=== PATIENT | male | born 1980 | race Caucasian/White ===

== ENCOUNTER 2017-05-05 11:54 | Observation (INO) | payer SELFPAY ==
[~2017-05-05] VITALS: Ht 170.2 cm; Wt 72.5 kg
[2017-05-05 11:55] VITALS: BP 157/85; PULSE 83; RESP 17; TEMP 98.8; O2SAT 96
--- NOTE | 2017-05-05 12:15 | PD ---
Physical Exam Time Seen by Provider: 12:14 Narrative 37yo M c/o "feeling sick and weird" for past few days. 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 IV drug use a few days ago. [place] fever, vomiting. Patient seen in triage. VS reviewed. Patient awaiting bed placement. Data Data Last Documented VS Vital Signs Date Time Temp Pulse Resp B/P Pulse Ox O2 Delivery O2 Flow Rate FiO2 05/05/17 11:55 98.8 83 17 157/85 96 MDM Supervised Visit with PEBBLES: Mikayla Barksdale May 05, 2017 12:15
[2017-05-05 16:25] VITALS: BP 116/73; PULSE 51; RESP 17; RESP 18; TEMP 97.8; O2SAT 98
--- NOTE | 2017-05-05 16:32 | PD ---
HPI Chief Complaint: Medical Clearance Time Seen by Provider: 16:20 Travel History International Travel<30 days: No Contact w/Intl Traveler<30days: No Traveled to known affect area: No History of Present Illness HPI 37 y/o male presents with feeling ill and having headaches over the past week or so. He states he last injected heroin this weekend. He states that he had brain surgery for an abscess up in [facility] a couple months ago. Quality is doesn't feel right. Severity is all over. He denies any fevers or other complaints other than intermittent numbness to his left arm. [facility] Past Medical History Narrative Medical Recent brain abscess Past Surgical History Narrative Surgical Brain surgery Social History Tobacco Use: Yes Substance Use: Yes (IV drug abuse) Allergies-Medications (Allergen,Severity, Reaction): Coded Allergies: Contrast Media (Verified Allergy, Unknown, HIVES, 05/05/17) Reported Meds & Prescriptions Reported Meds & Active Scripts Active Reported Methadone (Methadone HCl) 40 Mg Tab 110 Mg PO DAILY Review of Systems Except as stated in HPI: all other systems reviewed are Neg Physical Exam Narrative GENERAL: Well-nourished, well-developed patient. SKIN: Warm and dry. HEAD: Normocephalic and atraumatic. EYES: No injection or drainage. ENT: No nasal drainage noted. Poor dentition NECK: Supple, trachea midline. CARDIOVASCULAR: Regular rate and rhythm RESPIRATORY: Breath sounds equal bilaterally. No accessory muscle use. GASTROINTESTINAL: Abdomen soft, non-tender, nondistended. EXTREMITIES: No edema. NEUROLOGICAL: Awake and alert. Motor grossly within normal limits. Normal speech. Subjectively notes tingling to left arm Data Data Last Documented VS Vital Signs Date Time Temp Pulse Resp B/P Pulse Ox O2 Delivery O2 Flow Rate FiO2 05/05/17 16:25 97.8 51 17 116/[address] Brain W/O Iv Contrast(Rout) (05/05/17 ) Complete Blood Count With Diff (05/05/17 16:20) Comprehensive Metabolic Panel (05/05/17 16:20) Prothrombin Time / Inr (Pt) (05/05/17 16:20) Act Partial Throm Time (Ptt) (05/05/17 16:20) Lactic Acid Sepsis Protocol (05/05/17 16:20) Magnesium (Mg) (05/05/17 16:20) Phosphorus (Po4) (05/05/17 16:20) Urinalysis - C+S If Indicated (05/05/17 16:20) Blood Culture (05/05/17 16:20) Chest, Single Ap (05/05/17 16:20) Ecg Monitoring (05/05/17 16:20) Iv Access Insert/Monitor (05/05/17 16:20) Oximetry (05/05/17 16:20) Ckmb (Isoenzyme) Profile (05/05/17 16:32) Troponin I (05/05/17 16:32) Urine Culture (05/05/17 17:00) Admit Order (Ed Use Only) (05/05/17 17:57) Diet Regular Basic (05/05/17 Dinner) Vital Signs (Adult) NURA.Q4H (05/05/17 17:58) Neuro Checks . ORDERED (05/05/17 17:58) Ondansetron Inj (Zofran Inj) (05/05/17 18:00) Sodium Chlor 0.9% 1000 Ml Inj (Ns 1000 M (05/05/17 18:00) Labs Laboratory Tests Test 05/05/17 05/05/17 16:40 17:00 White Blood Count 5.8 TH/MM3 Red Blood Count 4.71 MIL/MM3 Hemoglobin 13.4 GM/DL Hematocrit 41.2 % Mean Corpuscular Volume 87.4 FL Mean Corpuscular Hemoglobin 28.3 PG Mean Corpuscular Hemoglobin 32.4 % Concent Red Cell Distribution Width 13.6 % Platelet Count 194 TH/MM3 Mean Platelet Volume 8.6 FL Neutrophils (%) (Auto) 58.3 % Lymphocytes (%) (Auto) 29.3 % Monocytes (%) (Auto) 7.5 % Eosinophils (%) (Auto) 4.4 % Basophils (%) (Auto) 0.5 % Neutrophils # (Auto) 3.4 TH/MM3 Lymphocytes # (Auto) 1.7 TH/MM3 Monocytes # (Auto) 0.4 TH/MM3 Eosinophils # (Auto) 0.3 TH/MM3 Basophils # (Auto) 0.0 TH/MM3 CBC Comment DIFF FINAL Differential Comment Prothrombin Time 11.3 SEC Prothromb Time International 1.0 RATIO Ratio Activated Partial 26.8 SEC Thromboplast Time Sodium Level 139 MEQ/L Potassium Level 4.4 MEQ/L Chloride Level 102 MEQ/L Carbon Dioxide Level 31.5 MEQ/L Anion Gap 6 MEQ/L Blood Urea Nitrogen 15 MG/DL Creatinine 1.09 MG/DL Estimat Glomerular Filtration 76 ML/MIN Rate Random Glucose 97 MG/DL Lactic Acid Level 1.5 mmol/L Calcium Level 8.8 MG/DL Phosphorus Level 3.6 MG/DL Magnesium Level 2.3 MG/DL Total Bilirubin 0.5 MG/DL Aspartate Amino Transf 13 U/L (AST/SGOT) Alanine Aminotransferase 14 U/L (ALT/SGPT) Alkaline Phosphatase 75 U/L Total Creatine Kinase 70 U/L Troponin I LESS THAN 0.02 NG/ML Total Protein 7.8 GM/DL Albumin 4.0 GM/DL Urine Color YELLOW Urine Turbidity CLEAR Urine pH 6.0 Urine Specific [place] 1.026 Urine Protein 30 mg/dL Urine Glucose (UA) NEG mg/dL Urine Ketones NEG mg/dL Urine Occult Blood NEG Urine Nitrite NEG Urine Bilirubin NEG Urine Urobilinogen LESS THAN 2.0 MG/DL Urine Leukocyte Esterase NEG Urine RBC 4 /hpf Urine WBC 1 /hpf Urine Bacteria RARE /hpf Urine Mucus FEW /lpf Microscopic Urinalysis Comment CATH-CULTURE IND MDM Medical Decision Making Medical Screen Exam Complete: Yes Emergency Medical Condition: Yes Medical Record Reviewed: Yes (past history confirmed) Interpretation(s) CBC & BMP Diagram 05/05/17 16:40 Last 24 hours Impressions Chest X-Ray 05/05/17 1620 Signed Impressions: Service Date/Time: Friday, May 05, 2017 16:25 - CONCLUSION: No acute disease. Chuy Gupta MD FACR Head CT 05/05/17 0000 Signed Impressions: Service Date/Time: Friday, May 05, 2017 16:36 - CONCLUSION: Negative for an acute process. Chuy Gupta MD FACR Differential Diagnosis Abscess, mass, endocarditis, pneumonia Narrative Course Will check lab, chest x-ray, CT brain and admit ED workup without emergent process, will place in observation for further testing with chest pain and IV drug abuse, patient and mother updated and agree to plan Physician Communication Physician Communication Dr. Butts agrees to admission Diagnosis Primary Impression: Chest pain Qualified Code: R07.9 - Chest pain, unspecified type Additional Impression: IVDU (intravenous drug user) Admitting Information Admitting Physician Requests: Observation Hird,Dorina May MD May 05, 2017 16:32
[2017-05-05] MEDS ORDERED: METH40TA PO (16:47)
--- NOTE | 2017-05-05 16:53 | RADRPT ---
EXAM DATE/TIME: 05/05/2017 16:25 [facility] COMPARISON: No previous studies available for comparison. INDICATIONS : Chest pain. MEDICAL HISTORY : None. SURGICAL HISTORY : None. ENCOUNTER: Initial ACUITY: 1 day PAIN SCORE: 10/13 LOCATION: Bilateral chest FINDINGS: A single view of the chest demonstrates the lungs to be symmetrically aerated without evidence of mas s, infiltrate or effusion. The cardiomediastinal contours are unremarkable. Osseous structures are intact. CONCLUSION: No acute disease. Chuy Gupta MD FACR on May 05, 2017 at 16:51 Board Certified Radiologist. This report was verified electronically.
[2017-05-05 17:18] LABS: AUTOMATED NEUTROPHIL # 3.4 TH/MM3 (1.8-7.7); BASOPHIL % 0.5 % (0.0-2.0); EOSINOPHIL # 0.3 TH/MM3 (0-0.4); EOSINOPHIL % 4.4 % (0.0-4.0); HEMATOCRIT 41.2 % (39.0-51.0); HEMO FLAGS DIFF FINAL; LYMPH % 29.3 % (9.0-44.0); LYMPHOCYTE # 1.7 TH/MM3 (1.0-4.8); MEAN CELL VOLUME 87.4 FL (80.0-100.0); MEAN CORPUSCULAR HEMOGLOBIN 28.3 PG (27.0-34.0); MEAN CORPUSCULAR HGB CONC 32.4 % (32.0-36.0); MONO % 7.5 % (0.0-8.0); NEUT % 58.3 % (16.0-70.0); PLATELET COUNT 194 TH/MM3 (150-450); RED BLOOD COUNT 4.71 MIL/MM3 (4.50-5.90); RED CELL DISTRIBUTION WIDTH 13.6 % (11.6-17.2); WHITE BLOOD COUNT 5.8 TH/MM3 (4.0-11.0)
--- NOTE | 2017-05-05 17:18 | RADRPT ---
EXAM DATE/TIME: 05/05/2017 16:36 [facility] COMPARISON: No previous studies available for comparison. INDICATIONS : Numbness in arms,sick feeling,history of abscess frontal lobe. RADIATION DOSE: 56.38 CTDIvol (mGy) MEDICAL HISTORY : Frontal lobe abscess SURGICAL HISTORY : brain surgery abscess ENCOUNTER: Initial ACUITY: 1 day PAIN SCALE: 3/10 LOCATION: cranial TECHNIQUE: Multiple contiguous axial images were obtained of the head. Using automated exposure control and adj ustment of the mA and/or kV according to patient size, radiation dose was kept as low as reasonably a chievable to obtain optimal diagnostic quality images. DICOM format image data is available electro nically for review and comparison. FINDINGS: CEREBRUM: The ventricles are normal for age. No evidence of midline shift, mass lesion, hemorrhage or acute in farction. No extra-axial fluid collections are seen. 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 POSTERIOR FOSSA: The cerebellum and brainstem are intact. The 4th ventricle is midline. The cerebellopontine angle i s unremarkable. EXTRACRANIAL: The visualized portion of the orbits is intact. SKULL: Previous surgery is present on the right. CONCLUSION: Negative for an acute process. Chuy Gupta MD FACR on May 05, 2017 at 17:15 Board Certified Radiologist. This report was verified electronically.
[2017-05-05 17:32] LABS: APTT (PATIENT) 26.8 SEC (24.3-30.1); PROTHROMBIN TIME - PATIENT 11.3 SEC (9.8-11.6)
[2017-05-05 17:41] LABS: ALT (GPT) 14 U/L (12-78); ANION GAP 6 MEQ/L (5-15); AST (GOT) 13 U/L (15-37); BICARBONATE 31.5 MEQ/L (21.0-32.0); BLOOD UREA NITROGEN 15 MG/DL (7-18); CHLORIDE 102 MEQ/L (98-107); GLOMERULAR FILTRATION RATE 76 ML/MIN (>89); MAGNESIUM 2.3 MG/DL (1.5-2.5); POTASSIUM 4.4 MEQ/L (3.5-5.1); SODIUM (NA) 139 MEQ/L (136-145)
[2017-05-05 17:43] LABS: ALKALINE PHOSPHATASE 75 U/L (45-117); TOTAL BILIRUBIN ADULT 0.5 MG/DL (0.2-1.0)
[2017-05-05 17:45] LABS: BLOOD, URINE NEG (NEG); GLUCOSE,URINE NEG (NEG); KETONE, URINE NEG (NEG); MUCUS URINE FEW /lpf (OCC); NITRITE,URINE NEG (NEG); URINE COLOR YELLOW (YELLW/STRAW)
[2017-05-05 17:46] LABS: COMMENT (UR) CATH-CULTURE IND; CULTURE IF INDICATED CATH CULTURE IND
[2017-05-05 17:47] LABS: BACTERIA, URINE RARE /hpf
[2017-05-05] MEDS ORDERED: VANCOMYCIN INJ 1,000 MG in SODIUM CHLOR 0.9% 250 ML INJ 250 ML IV STA (17:59)
[2017-05-05] MEDS ORDERED: ONDANSETRON HCL 4 MG/2 ML VIAL IV PUSH PRN (18:00)
[2017-05-05 18:12] LABS: CREATINE KINASE 70 U/L (39-308)
[2017-05-05] MEDS: SODIUM CHLOR 0.9% 1000 ML INJ 1,000 ML IV SCH (18:33)
[2017-05-05 18:39] VITALS: BP 114/70; PULSE 54; RESP 17; TEMP 97.8; O2SAT 98
[2017-05-05 19:49] VITALS: BP 118/72; PULSE 58; RESP 14; O2SAT 99
[2017-05-05] MEDS: PIPERACIL-TAZO 4.5 GM PREMIX 100 ML IV SCH (20:00)
[2017-05-05] MEDS ORDERED: Vancomycin Consult Pharmacy 1 EA OTHER SCH (20:00)
[2017-05-05 21:07] VITALS: BP 107/67; PULSE 50; RESP 19; TEMP 98; O2SAT 96
[2017-05-05 23:49] VITALS: PULSE 47
[2017-05-06 00:28] VITALS: BP 114/64; PULSE 42; RESP 17; TEMP 98.3; O2SAT 95
[2017-05-06] MEDS: PIPERACIL-TAZO 4.5 GM PREMIX 100 ML IV SCH (01:35)
[2017-05-06 03:51] VITALS: BP 110/64; PULSE 43; RESP 16; TEMP 97.8; O2SAT 95
[2017-05-06] MEDS: SODIUM CHLOR 0.9% 1000 ML INJ 1,000 ML IV SCH (04:00)
[2017-05-06] MEDS ORDERED: METH10SO PO (05:12)
[2017-05-06] MEDS ORDERED: VANCOMYCIN 1,000 MG/NS 250 ML IV SCH ×2 (06:00)
[2017-05-06 08:15] VITALS: BP 94/56; PULSE 53; RESP 20; TEMP 98; O2SAT 94
--- NOTE | 2017-05-06 08:49 | HHI.HP ---
HPI Service [facility] Primary Care Physician No Primary Care Physician Admission Diagnosis chest pain, IVDA Diagnoses: Chief Complaint: Weakness Travel History International Travel<30 Days: No Contact w/Intl Traveler <30 Da: No Traveled to Known Affected Are: No History of Present Illness Written by Eduar Rutledge, acting as scribe for Dr. Holm on 05/06/17 at 08:47. This note was transcribed by scribIMANI Mccarthy. I, Dr. Chang Holm personally performed the history, physical exam, and medical decision making; and confirmed the accuracy of the information in the transcribed note. Authenticated by Dr. Chang Holm on 05/06/17 at 23:24. 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 The patient states that for the last week he's felt sick. When asked to describe states that he's felt weak and tired. He has had a headache for the past week. Usually the headache is located in the frontal region, last night it was behind the right eye. The patient does have a history of brain abscess in November 2015 that he states was related to an infected tooth. The patient denies any fevers or chills. The past week he has also had chest discomfort. He describes it as tight, intermittent, not related to exertion. He reports some associated left arm numbness. The patient feels like his symptoms may be related to his broken teeth, for which she has an upcoming appointment with a dentist. Review of Systems Except as stated in HPI: all other systems reviewed are Neg Past Family Social History Past Medical History History of brain abscess History of MRSA Past Surgical History Brain surgery for brain abscess in November 2015 Left hand surgery for infection Right wrist fracture repair Reported Medications Methadone 110 mg daily Allergies: Coded Allergies: Contrast Media (Verified Allergy, Unknown, HIVES, 05/05/17) Active Ordered Medications Current Medications Medications (Trade) Dose Ordered Sig/Radha Route Start Time Stop Time Status Last Admin Ondansetron HCl 4 mg 4 mg Q8H PRN IV PUSH 05/05/17 18:00 Sodium Chloride 1,000 ml @ 100 mls/hr Q10H IV 05/05/17 18:00 05/05/17 18:33 Pharmacy Profile Note 0 ml @ 0 mls/hr UNSCH OTHER 05/05/17 20:00 Piperacillin Sod/ Tazobactam Sod 100 ml @ 200 mls/hr Q6H IV 05/05/17 20:00 05/06/17 01:35 (Vancomycin Inj/ NS 250 ml Inj) 250 ml @ 250 mls/hr Q12H IV 05/06/17 06:00 05/06/17 05:58 Miscellaneous Information SPECIFIC LAB TO BE DINAH... ONCE ONCE .XX 05/07/17 05:45 05/07/17 05:46 (Dolophine) 110 mg DAILY PO 05/06/17 09:00 Family History Reviewed, no family history pertinent current chief complaint Social History Smokes one pack per day Denies any alcohol use IV opiate abuse, last used more than a week ago Physical Exam Vital Signs Vital Signs Date Time Temp Pulse Resp B/P Pulse Ox O2 Delivery O2 Flow Rate FiO2 05/06/17 08:15 98.0 53 20 94/56 94 05/06/17 03:51 97.8 43 16 110/64 95 05/06/17 00:28 98.3 42 17 114/64 95 05/05/17 23:49 47 05/05/17 21:07 98.0 50 19 107/67 96 05/05/17 19:49 58 14 118/72 99 Room Air 05/05/17 18:39 97.8 54 17 114/70 98 Room Air 05/05/17 16:25 97.8 51 17 116/73 98 Room Air 05/05/17 16:25 18 98 Room Air 05/05/17 16:25 51 17 05/05/17 11:55 98.8 83 17 157/85 96 Physical Exam GENERAL: Well-developed well-nourished. In no acute distress. SKIN: Warm and dry. No lesions noted. HEENT: Normocephalic. Pupils equal and round. Mucous membranes pink and moist. Multiple broken teeth and inflamed gums. CARDIOVASCULAR: Regular rate and rhythm. No murmur appreciated. RESPIRATORY: No accessory muscle use. Clear to auscultation. Breath sounds equal bilaterally. GASTROINTESTINAL: Abdomen soft, non-tender, nondistended. Bowel sounds x4. MUSCULOSKELETAL: No obvious deformities. No clubbing or cyanosis. No edema. NEUROLOGICAL: Awake and alert. No focal neurological deficits. Moves upper and lower extremities spontaneously. Normal speech. PSYCHIATRIC: Appropriate mood and affect; insight and judgment normal. Laboratory Laboratory Tests Test 05/05/17 05/05/17 16:40 17:00 White Blood Count 5.8 Red Blood Count 4.71 Hemoglobin 13.4 Hematocrit 41.2 Mean Corpuscular Volume 87.4 Mean Corpuscular Hemoglobin 28.3 Mean Corpuscular Hemoglobin 32.4 Concent Red Cell Distribution Width 13.6 Platelet Count 194 Mean Platelet Volume 8.6 Neutrophils (%) (Auto) 58.3 Lymphocytes (%) (Auto) 29.3 Monocytes (%) (Auto) 7.5 Eosinophils (%) (Auto) 4.4 Basophils (%) (Auto) 0.5 Neutrophils # (Auto) 3.4 Lymphocytes # (Auto) 1.7 Monocytes # (Auto) 0.4 Eosinophils # (Auto) 0.3 Basophils # (Auto) 0.0 CBC Comment DIFF FINAL Differential Comment Prothrombin Time 11.3 Prothromb Time International 1.0 Ratio Activated Partial 26.8 Thromboplast Time Sodium Level 139 Potassium Level 4.4 Chloride Level 102 Carbon Dioxide Level 31.5 Anion Gap 6 Blood Urea Nitrogen 15 Creatinine 1.09 Estimat Glomerular Filtration 76 Rate Random Glucose 97 Lactic Acid Level 1.5 Calcium Level 8.8 Phosphorus Level 3.6 Magnesium Level 2.3 Total Bilirubin 0.5 Aspartate Amino Transf 13 (AST/SGOT) Alanine Aminotransferase 14 (ALT/SGPT) Alkaline Phosphatase 75 Total Creatine Kinase 70 Troponin I LESS THAN 0.02 Total Protein 7.8 Albumin 4.0 Urine Color YELLOW Urine Turbidity CLEAR Urine pH 6.0 Urine Specific [place] 1.026 Urine Protein 30 Urine Glucose (UA) NEG Urine Ketones NEG Urine Occult Blood NEG Urine Nitrite NEG Urine Bilirubin NEG Urine Urobilinogen LESS THAN 2.0 Urine Leukocyte Esterase NEG Urine RBC 4 Urine WBC 1 Urine Bacteria RARE Urine Mucus FEW Microscopic Urinalysis Comment CATH-CULTURE IND Date/Time Procedure Status Source Growth 05/05/17 17:00 Urine Culture Received Urine Catheterized Urine Pending 05/05/17 16:25 Aerobic Blood Culture Received Blood Peripheral Pending 05/05/17 16:25 Anaerobic Blood Culture Received Blood Peripheral Pending Result Diagram: 05/05/17 1640 05/05/17 1640 Imaging Last Impressions Chest X-Ray 05/05/17 1620 Signed Impressions: Service Date/Time: Friday, May 05, 2017 16:25 - CONCLUSION: No acute disease. Chuy Gupta MD FACR Head CT 05/05/17 0000 Signed Impressions: Service Date/Time: Friday, May 05, 2017 16:36 - CONCLUSION: Negative for an acute process. 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 Lactic acid within normal limits. Further workup for headache and chest pain as below. Blood cultures pending, no growth to date. Headache: Head CT negative for acute process. Check brain MRI to rule out abscess. Chest pain: Chest x-ray clear. Initial troponin within normal limits, will repeat. Check EKG. Dental abscess: Could be contributing to symptoms as above. Continue on Augmentin. Outpatient follow-up with dentist. Substance abuse disorder: Counseled on cessation. Continue home methadone dose , monitor with bradycardia. Tobacco abuse: Counseled on cessation. Nicotine patch. Abnormal UA: UA is unremarkable, however was sent for culture. Continue on antibiotics as above. Outpatient follow-up with PCP for final culture results. Disposition: Follow-up results of EKG, troponin, brain MRI, and culture results. If results remain unremarkable, discharge planning for later today. Discharge patient to home Condition on discharge: Improved Regular Diet as tolerated Ad Mira activity Rx written: Augmentin x 7 days. Follow-up with primary care physician within one week. Dentistry within one week. Discussed Condition With Patient with mother at bedside, Eduar Zelaya May 06, 2017 08:49 Edilson Holm DO May 06, 2017 23:25
[2017-05-06 09:00] VITALS: PULSE 46
[2017-05-06] MEDS ORDERED: METHADONE HCL 10 MG TAB PO SCH (09:00)
[2017-05-06] MEDS ORDERED: REMOVE OLD PATCH T-DERMAL SCH (10:00)
[2017-05-06] MEDS ORDERED: NICOTINE 21 MG/24 HR PATCH T-DERMAL SCH (10:00)
[2017-05-06] MEDS ORDERED: AMOXICILLIN/CLAVULANATE K 875 MG TAB PO SCH (10:00)
--- NOTE | 2017-05-06 10:43 | RADRPT ---
EXAM DATE/TIME: 05/06/2017 10:15 [facility] COMPARISON: No previous studies available for comparison. INDICATIONS : Abscess. Headache and numbness in arms. MEDICAL HISTORY : Stroke IVDU. SURGICAL HISTORY : Brain abcess. ENCOUNTER: Initial ACUITY: 1 week PAIN SCORE: 4/10 LOCATION: Head. TECHNIQUE: Multiplanar, multisequence MRI of the brain was performed without contrast. FINDINGS: There is a previous right craniotomy reportedly for abscess. 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 No mass effect or shift. No hydrocephalus. No abnormal extra-axial fluid irene ections. No evidence for recent infarction. Mild hemosiderin deposits in the surgical bed. CONCLUSION: 1. No acute findings. Previous right craniotomy with some residual encephalomalacia in the right fron pilar lobe. Nile William MD on May 06, 2017 at 10:38 Board Certified Radiologist. This report was verified electronically.
[2017-05-06] MEDS ORDERED: AMOX875T2 PO (11:43)
[2017-05-06 12:03] VITALS: BP 98/53; PULSE 45; RESP 18; TEMP 98.1; O2SAT 95
[2017-05-07] MEDS ORDERED: PHARMACY ORDERED LAB ONE (05:45)
== END 2017-05-06 13:23 | disposition home or self-care (01) ==
LOC: NEPC 11:54 → NEDA 17:59 → NEPGCP 20:21
PROVIDERS: ADMIT Hospitalist; ATTEND Hospitalist
DX: R53.1 Weakness (principal); R07.9 Chest pain, unspecified; R51 Headache; K04.7 Periapical abscess without sinus; F17.200 Nicotine dependence, unspecified, uncomplicated; F19.10 Other psychoactive substance abuse, uncomplicated; Z71.6 Tobacco abuse counseling
CPT/HCPCS: 70450; 70551; 71010; 80053; 81001; 82550; 83605; 83735; 84100; 84484; 85025; 85610; 85730; 87040; 87086; 96365; 96366; 96367; 96376; 99285; G0378; J2543; J3370; J7030; J7050

== ENCOUNTER 2017-08-21 09:02 | Emergency (ER) | payer SELFPAY ==
[~2017-08-21] VITALS: Ht 170.2 cm; Wt 77.0 kg
[~2017-08-21 09:02] MED LIST: BACT800T5 PO; CEPH-460 PO; METH10SO PO
[2017-08-21 09:04] VITALS: BP 153/69; PULSE 81; RESP 18; TEMP 98.3; O2SAT 98
[2017-08-21 09:45] VITALS: BP 155/90; PULSE 83; RESP 19; O2SAT 97
[2017-08-21 09:54] LABS: AUTOMATED NEUTROPHIL # 5.3 TH/MM3 (1.8-7.7); BASOPHIL % 0.4 % (0.0-2.0); EOSINOPHIL # 0.3 TH/MM3 (0-0.4); EOSINOPHIL % 3.6 % (0.0-4.0); HEMO FLAGS DIFF FINAL; LYMPH % 24.5 % (9.0-44.0); LYMPHOCYTE # 2.1 TH/MM3 (1.0-4.8); MEAN CELL VOLUME 87.4 FL (80.0-100.0); MEAN CORPUSCULAR HGB CONC 35.5 % (32.0-36.0); MONO % 8.5 % (0.0-8.0); PLATELET COUNT 183 TH/MM3 (150-450); RED BLOOD COUNT 4.68 MIL/MM3 (4.50-5.90); RED CELL DISTRIBUTION WIDTH 14.1 % (11.6-17.2); WHITE BLOOD COUNT 8.5 TH/MM3 (4.0-11.0)
[2017-08-21] MEDS ORDERED: LORazepam 2 MG/ML VIAL IV PUSH ONE (10:00)
[2017-08-21 10:09] LABS: BLOOD, URINE NEG (NEG); GLUCOSE,URINE NEG (NEG); KETONE, URINE NEG (NEG); NITRITE,URINE NEG (NEG); PH, URINE 6.5 (5.0-8.5); URINE COLOR YELLOW (YELLW/STRAW)
[2017-08-21 10:19] LABS: ANION GAP 5 MEQ/L (5-15); AST (GOT) 23 U/L (15-37); BICARBONATE 27.4 MEQ/L (21.0-32.0); BLOOD UREA NITROGEN 15 MG/DL (7-18); CHLORIDE 104 MEQ/L (98-107); GLOMERULAR FILTRATION RATE 72 ML/MIN (>89); SODIUM (NA) 136 MEQ/L (136-145)
[2017-08-21 10:20] LABS: ALT (GPT) 24 U/L (12-78)
[2017-08-21 10:21] LABS: COMMENT (UR) CULT NOT INDICATED; CULTURE IF INDICATED CULT NOT INDICATED; TRANSITIONAL EPI CELLS, URINE 0-5 /hpf; WBC, URINE 0-2 /hpf (0-5)
[2017-08-21 10:22] LABS: ALKALINE PHOSPHATASE 79 U/L (45-117); TOTAL BILIRUBIN ADULT 0.6 MG/DL (0.2-1.0)
--- NOTE | 2017-08-21 10:25 | PD ---
HPI . Facial pain and swelling Chief Complaint: Headache Time Seen by Provider: 09:17 Travel History International Travel<30 days: No Contact w/Intl Traveler<30days: No Traveled to known affect area: No History of Present Illness HPI This patient actually presents with several complaints but the chief complaint is left facial pain and swelling which started this morning. It just started so there has been no progression of his symptoms. He has noted no modifying factors. He does report associated "bad teeth." His second complaint is a "bad headache." He also reports feeling very tired and having a subjective fever. He states that he underwent brain surgery a year ago because of an abscess on his brain. He states that the abscess was felt to be secondary to a dental abscess. Therefore, with the acute facial swelling and a headache, he is concerned about having another abscess in his brain. Lastly, he is complaining with right upper extremity pain. He states that it starts in his back and radiates to his arm. He states that this started when treatment of an infected thumb. That was about a month ago. This patient does admit to a history of IV drug abuse but states that he has been clean for the last 2 months. He is in a methadone treatment program. PFSH Past Medical History Hx Anticoagulant Therapy: No Blood Disorders: No Anxiety: Yes Depression: Yes Heart Rhythm Problems: Yes ("LOW HEART RATE" PER PT ) Cancer: No Cardiovascular Problems: No High Cholesterol: No Chemotherapy: No Chest Pain: Yes Congestive Heart Failure: No Cerebrovascular Accident: Yes Diabetes: No Diminished Hearing: No Endocrine: No Gastrointestinal Disorders: Yes (3-4 DAYS PT HAS BM) Genitourinary: No Immune Disorder: No Implanted Vascular Access Dvce: Yes Musculoskeletal: No Neurologic: Yes (stroke LEFT SIDED DEFICITS) Psychiatric: Yes Reproductive: No Respiratory: No Integumentary: Yes (mrsa ) Radiation Therapy: No Thyroid Disease: No Past Surgical History Body Medical Devices: PLATE AND SCREWS IN HEAD Neurologic Surgery: Yes (BRAIN SURGERY FOR ABSCESS FROM IVD USE) Other Surgery: Yes (BRAIN SURG,LEFT HAND, RIGH WRIST FX) Social History Alcohol Use: No (pt denies) Tobacco Use: Yes (1PPD) Substance Use: Yes (METHADONE DAILY) Allergies-Medications (Allergen,Severity, Reaction): Coded Allergies: Iodinated Contrast- Oral and IV Dye (Unverified Allergy, Severe, Rash, ) diatrizoate meglumine (Unverified Allergy, Unknown, HIVES, 08/21/17) gadobenic acid (Unverified Allergy, Unknown, HIVES, 08/21/17) gadodiamide (Unverified Allergy, Unknown, HIVES, 08/21/17) gadoteridol (Unverified Allergy, Unknown, HIVES, 08/21/17) iodixanol (Unverified Allergy, Unknown, HIVES, 08/21/17) iohexol (Unverified Allergy, Unknown, HIVES, 08/21/17) Reported Meds & Prescriptions Reported Meds & Active Scripts Active Keflex (Cephalexin) 500 Mg Cap 500 Mg PO Q6H 10 Days Bactrim DS (Sulfamethoxazole-Trimethoprim) 800-160 Mg Tab 1 Tab PO BID Reported Methadone Liq (Methadone HCl) 2 Mg/Ml Liqd 110 Mg PO DAILY Review of Systems Except as stated in HPI: all other systems reviewed are Neg General / Constitutional: Positive: Fever, Chills Eyes: No: Blurred Vision, Photophobia HENT: Positive: Headaches, Dental Difficulties, Other (left facial swelling) Musculoskeletal: Positive: Pain Physical Exam Narrative GENERAL: Awake and alert and in no acute distress. SKIN: Warm and dry. Erythema, warmth and swelling of the left cheek. HEAD: Normocephalic/atraumatic. EYES: Pupils are equal. Extraocular movements are intact. ENT: Extremely poor dentition. His teeth have the appearance of someone who has been a user of methamphetamine. NECK: Normal range of motion. Supple. No cervical lymphadenopathy. CARDIOVASCULAR: Regular rate and rhythm. Heart sounds are normal. RESPIRATORY: Nonlabored respirations. MUSCULOSKELETAL: Atraumatic. Tender in the upper thoracic spine. NEUROLOGICAL: Nonfocal. A and O 3. Cranial nerves are intact. Full and equal muscle strength in all 4 extremities. PSYCHIATRIC: Appropriate mood and affect. Data Data Last Documented VS Vital Signs Date Time Temp Pulse Resp B/P (MAP) Pulse Ox O2 Delivery O2 Flow Rate FiO2 08/21/17 13:00 74 17 119/64 (82) 97 Room Air 08/21/17 09:04 98.3 Orders Orders Sepsis Workup Initiated (08/21/17 ) Complete Blood Count With Diff (08/21/17 09:23) Comprehensive Metabolic Panel (08/21/17 09:23) Lactic Acid Sepsis Protocol (08/21/17 09:23) Urinalysis - C+S If Indicated (08/21/17 09:23) Blood Culture (08/21/17 09:23) Blood Glucose (08/21/17 09:23) Ecg Monitoring (08/21/17 09:23) Iv Access Insert/Monitor (08/21/17 09:23) Oximetry (08/21/17 09:23) Oxygen Administration (08/21/17 09:23) Mri Brain W/O Contrast (08/21/17 09:26) Mri T Spine W/O Contrast (08/21/17 09:26) Mri Facial Soft Tiss W/O Cont (08/21/17 ) Lorazepam Inj (Ativan Inj) (08/21/17 10:00) Ampicillin-Sulbactam Inj (Unasyn Inj) (08/21/17 12:45) Ct Facial Bones W/O Iv Cont (08/21/17 12:38) Labs Laboratory Tests Test 08/21/17 09:30 White Blood Count 8.5 TH/MM3 Red Blood Count 4.68 MIL/MM3 Hemoglobin 14.5 GM/DL Hematocrit 41.0 % Mean Corpuscular Volume 87.4 FL Mean Corpuscular Hemoglobin 31.0 PG Mean Corpuscular Hemoglobin Concent 35.5 % Red Cell Distribution Width 14.1 % Platelet Count 183 TH/MM3 Mean Platelet Volume 8.9 FL Neutrophils (%) (Auto) 63.0 % Lymphocytes (%) (Auto) 24.5 % Monocytes (%) (Auto) 8.5 % Eosinophils (%) (Auto) 3.6 % Basophils (%) (Auto) 0.4 % Neutrophils # (Auto) 5.3 TH/MM3 Lymphocytes # (Auto) 2.1 TH/MM3 Monocytes # (Auto) 0.7 TH/MM3 Eosinophils # (Auto) 0.3 TH/MM3 Basophils # (Auto) 0.0 TH/MM3 CBC Comment DIFF FINAL Differential Comment Urine Color YELLOW Urine Turbidity CLEAR Urine pH 6.5 Urine Specific [place] 1.030 Urine Protein NEG mg/dL Urine Glucose (UA) NEG mg/dL Urine Ketones NEG mg/dL Urine Occult Blood NEG Urine Nitrite NEG Urine Bilirubin NEG Urine Urobilinogen LESS THAN 2.0 MG/DL Urine Leukocyte Esterase SMALL Urine WBC 0-2 /hpf Urine Transitional Epithelial Cells 0-5 /hpf Microscopic Urinalysis Comment CULT NOT INDICATED Blood Urea Nitrogen 15 MG/DL Creatinine 1.14 MG/DL Random Glucose 78 MG/DL Total Protein 8.4 GM/DL Albumin 4.2 GM/DL Calcium Level 8.7 MG/DL Alkaline Phosphatase 79 U/L Aspartate Amino Transf (AST/SGOT) 23 U/L Alanine Aminotransferase (ALT/SGPT) 24 U/L Total Bilirubin 0.6 MG/DL Sodium Level 136 MEQ/L Potassium Level 4.0 MEQ/L Chloride Level 104 MEQ/L Carbon Dioxide Level 27.4 MEQ/L Anion Gap 5 MEQ/L Estimat Glomerular Filtration Rate 72 ML/MIN Lactic Acid Level 1.2 mmol/L MDM Medical Decision Making Medical Screen Exam Complete: Yes Emergency Medical Condition: Yes Differential Diagnosis Differential diagnosis of headache includes but is not limited to migraine, muscle contraction headache, brain tumor, brain bleed Differential diagnosis of facial swelling includes but is not limited to dental abscess, cellulitis, angioedema, facial trauma. Differential diagnosis includes but is not limited to muscular low back pain, DDD, spinal stenosis, epidural abscess, sciatica, kidney infection or stone. Narrative Course This patient presents with several problems. His first problem is left facial swelling probably secondary to a dental abscess. The second is a headache and the third is upper back pain radiating to the right arm. He admits to previous IV drug abuse but states that he has been clean for the last 2 months. However , I am concerned about possible epidural abscess in the thoracic back. I'm also concerned about dental abscess. And, he gives a history of a previous brain abscess secondary to a dental abscess. He is allergic to IV contrast. Therefore, I have ordered an MRI of his head, face and thoracic spine. CBC & BMP Diagram 08/21/17 09:30 Total Protein 8.4 H, Albumin 4.2, Calcium Level 8.7, Alkaline Phosphatase 79, Aspartate Amino Transf (AST/SGOT) 23, Alanine Aminotransferase (ALT/SGPT) 24, Total Bilirubin 0.6 LA 1.2 UA neg. With these lab results, I am no longer as worried about infection. MRI face: Ill-defined soft tissue signal abnormality of the left premaxillary region demonstrating hyperintensity on the T2 weighted images. The abnormality measures 4.5 x 1.5 cm in axial dimensions and 5.8 cm in craniocaudal dimensions. It is contiguous with severe mucosal thickening/signal abnormality of the anterior aspect of the left maxillary sinus. The signal abnormality extends through the anterior wall of the left maxillary sinus inferiorly and laterally. The entire contiguous signal abnormality measures 4.6 x 3.3 cm in aggregate. MRI brain: No acute intracranial findings. MRI T spine: Thoracic spine MRI within normal limits. I will get a CT of his face. He will be empirically treated with Unasyn. CT: Corresponding to the findings on the MRI there is circumferential mucosal thickening in the left maxillary sinus without air-fluid level. There is significant induration of the subcutaneous fat of the left premaxillary region and extending medially to the lateral aspect of the nose. There is no focal fluid collection at this time. The retroantral fat pads are normal. The remaining paranasal sinuses are well aerated with minimal ethmoid mucosal thickening. Mastoid air cells are well aerated. No destructive osseous lesions are seen, however there is significant dental disease with periapical lucency seen involving the maxillary teeth consistent with significant dental disease. Multiple dental caries are visualized. Given the results of the CT, he can be treated outpatient with referral to [facility]. Diagnosis Primary Impression: Dental abscess Referrals: Dentist Patient Instructions: Dental Abscess (ED), General Instructions Med/Other Pt SpecificInfo: Prescription(s) given Scripts Amoxicillin-Clavulanate (Augmentin) 875-125 Mg Tab 1 TAB PO BID for Infection, #20 TAB 0 Refills Prov: Kriss Matta MD 08/21/17 Disposition: 01 DISCHARGE HOME Condition: Stable Kriss Matta MD Aug 21, 2017 10:25
--- NOTE | 2017-08-21 11:45 | RADRPT ---
EXAM DATE/TIME: 08/21/2017 09:59 [facility] COMPARISON: No previous studies available for comparison. INDICATIONS : Soft tissue swelling left cheeck MEDICAL HISTORY : IVDA SURGICAL HISTORY : Craniotomy. ENCOUNTER: Initial ACUITY: 1 day PAIN SCORE: 4/10 LOCATION: Left Face TECHNIQUE: Multi-weighted, multi-axial MR images of the facial soft tissue without contrast. FINDINGS: Ill-defined soft tissue signal abnormality of the left premaxillary region demonstrating hyperintensi ty on the T2 weighted images. The abnormality measures 4.5 x 1.5 cm in axial dimensions and 5.8 cm in craniocaudal dimensions. It is contiguous with severe mucosal thickening/signal abnormality of the a nterior aspect of the left maxillary sinus. The signal abnormality extends through the anterior wall of the left maxillary sinus inferiorly and laterally. The entire contiguous signal abnormality measur es 4.6 x 3.3 cm in aggregate. CONCLUSION: Ill-defined signal abnormality of the premaxillary soft tissues and left maxillary sinus. Abnormality involves and extends through the anterior wall of the left maxillary sinus. Total diagnosis includes infection and neoplasm. Post contrast imaging may also be beneficial. Noncontrast CT could also be p erformed to evaluate for bony integrity. Braeden Acosta MD on August 21, 2017 at 11:37 Board Certified Radiologist. This report was verified electronically.
--- NOTE | 2017-08-21 12:20 | RADRPT ---
EXAM DATE/TIME: 08/21/2017 09:59 [facility] COMPARISON: MRI BRAIN W/O CONTRAST, May 06, 2017, 10:15. INDICATIONS : Cephalgia. MEDICAL HISTORY : IVDA SURGICAL HISTORY : Craniotomy. ENCOUNTER: Initial ACUITY: 1 day PAIN SCORE: 7/10 LOCATION: cranial TECHNIQUE: Multiplanar, multisequence MRI of the brain was performed without contrast. FINDINGS: CEREBRUM: Focal cortical encephalomalacia in the right frontal region unchanged. The ventricles are normal for age. No evidence of midline shift, mass lesion, hemorrhage or acute infarction. No extraaxial fluid collections are seen. The pituitary gland and suprasellar cistern are normal in configuration. WHITE MATTER: No significant signal abnormalities are seen in the white matter. POSTERIOR FOSSA: The cerebellum and brainstem are intact. The 4th ventricle is midline. The cerebellopontine angle is unremarkable. The cerebellar tonsils are normal in position. DIFFUSION IMAGING: No focal areas of restricted diffusion are seen. No evidence of acute infarction. EXTRACRANIAL: The visualized portions of the orbits and paranasal sinuses are unremarkable. CONCLUSION: No acute intracranial findings. Braeden Acosta MD on August 21, 2017 at 12:17 Board Certified Radiologist. This report was verified electronically.
--- NOTE | 2017-08-21 12:24 | RADRPT ---
EXAM DATE/TIME: 08/21/2017 09:59 [facility] COMPARISON: No previous studies available for comparison. INDICATIONS : Right shoulder pain. MEDICAL HISTORY : IVDA. SURGICAL HISTORY : Craniotomy. ENCOUNTER: Initial ACUITY: 1 day PAIN SCORE: 4/10 LOCATION: Paraspinal TECHNIQUE: Multiplanar multisequence MRI of the thoracic spine was performed. FINDINGS: VERTEBRA: Normal vertebral body height. Homogeneous marrow signal. ALIGNMENT: Normal. CORD: Normal position and configuration. T1-T2: Normal. T2-T3: The thecal sac has a normal diameter. No evidence of disc bulge or protrusion. T3-T4: The thecal sac has a normal diameter. No evidence of disc bulge or protrusion. T4-T5: The thecal sac has a normal diameter. No evidence of disc bulge or protrusion. T5-T6: The thecal sac has a normal diameter. No evidence of disc bulge or protrusion. T6-T7: The thecal sac has a normal diameter. No evidence of disc bulge or protrusion. T7-T8: The thecal sac has a normal diameter. No evidence of disc bulge or protrusion. T8-T9: The thecal sac has a normal diameter. No evidence of disc bulge or protrusion. T9-T10: The thecal sac has a normal diameter. No evidence of disc bulge or protrusion. T10-T11: The thecal sac has a normal diameter. No evidence of disc bulge or protrusion. T11-T12: The thecal sac has a normal diameter. No evidence of disc bulge or protrusion. T12-L1: The thecal sac has a normal diameter. No evidence of disc bulge or protrusion. CONCLUSION: Thoracic spine MRI within normal limits. Braeden Acosta MD on August 21, 2017 at 12:18 Board Certified Radiologist. This report was verified electronically.
[2017-08-21] MEDS ORDERED: AMPICILLIN-SULBACTAM INJ 3 GM in SODIUM CHLORIDE 0.9% INJ 100 ML IV ONE (12:45)
[2017-08-21 13:00] VITALS: BP 119/64; PULSE 74; RESP 17; O2SAT 97
--- NOTE | 2017-08-21 13:44 | RADRPT ---
EXAM DATE/TIME: 08/21/2017 13:21 [facility] COMPARISON: MRI FACIAL SOFT TISSUE W/O CONTRAST, August 21, 2017, 9:59. INDICATIONS : Cephalgia and left sided facial swelling today. RADIATION DOSE: 43.28 CTDIvol (mGy) MEDICAL HISTORY : Stroke. Methicillin-resistant Staphylococcus aureus. SURGICAL HISTORY : brain surgery ENCOUNTER: Initial ACUITY: 1 day PAIN SCORE: 7/10 LOCATION: Left face TECHNIQUE: Volumetric scanning of the facial bones was performed. Using automated exposure contr ol and adjustment of the mA and/or kV according to patient size, radiation dose was kept as low as re asonably achievable to obtain optimal diagnostic quality images. DICOM format image data is availabl e electronically for review and comparison. FINDINGS: Corresponding to the findings on the MRI there is circumferential mucosal thickening in the left maxi llary sinus without air-fluid level. There is significant induration of the subcutaneous fat of the l eft premaxillary region and extending medially to the lateral aspect of the nose. There is no focal f luid collection at this time. The retroantral fat pads are normal. The remaining paranasal sinuses ar e well aerated with minimal ethmoid mucosal thickening. Mastoid air cells are well aerated. No destru ctive osseous lesions are seen, however there is significant dental disease with periapical lucency s een involving the maxillary teeth consistent with significant dental disease. Multiple dental caries are visualized. CONCLUSION: 1. Left maxillary sinusitis with significant premaxillary soft tissue swelling without focal fluid co llection. 2. Significant maxillary dental disease. Oneil Ochoa MD on August 21, 2017 at 13:38 Board Certified Radiologist. This report was verified electronically.
[2017-08-21] MEDS ORDERED: AUGM875T3 PO (13:50)
== END 2017-08-21 14:35 | disposition home or self-care (01) ==
LOC: NEPC 09:02
DX: K04.7 Periapical abscess without sinus (principal); F17.210 Nicotine dependence, cigarettes, uncomplicated; Z86.61 Personal history of infections of the central nervous system; Z86.73 Personal history of transient ischemic attack (TIA), and cerebral infarction without residual deficits; Z79.891 Long term (current) use of opiate analgesic
CPT/HCPCS: 70486; 70540; 70551; 72146; 80053; 81001; 83605; 85025; 87040; 96365; 96375; 99285; J0295; J2060

== ENCOUNTER 2017-08-22 03:30 | Emergency (ER) | payer SELFPAY ==
[~2017-08-22] VITALS: Ht 170.2 cm; Wt 65.9 kg
[~2017-08-22 03:30] MED LIST changes: +AUGM875T3 PO
[2017-08-22 03:45] VITALS: BP 146/87; PULSE 68; RESP 14; TEMP 99; O2SAT 98
[2017-08-22] MEDS ORDERED: CLINDAMYCIN INJ 900 MG in SODIUM CHLORIDE 0.9% INJ 100 ML IV ONE (05:15)
[2017-08-22] MEDS ORDERED: oxyCODONE/ACETAMINOPHEN 5 MG/325 MG TAB PO ONE (05:15)
[2017-08-22] MEDS ORDERED: SODIUM CHLOR 0.9% 1000 ML INJ 1,000 ML IV ONE (05:15)
[2017-08-22 05:16] LABS: BICARBONATE 26.4 MEQ/L (21.0-32.0)
[2017-08-22 05:38] LABS: AUTOMATED NEUTROPHIL # 5.7 TH/MM3 (1.8-7.7); BASOPHIL % 0.4 % (0.0-2.0); EOSINOPHIL # 0.3 TH/MM3 (0-0.4); EOSINOPHIL % 3.8 % (0.0-4.0); HEMATOCRIT 40.4 % (39.0-51.0); HEMO FLAGS DIFF FINAL; LYMPH % 20.7 % (9.0-44.0); LYMPHOCYTE # 1.9 TH/MM3 (1.0-4.8); MEAN CORPUSCULAR HEMOGLOBIN 29.5 PG (27.0-34.0); MEAN CORPUSCULAR HGB CONC 33.5 % (32.0-36.0); MONO % 11.9 % (0.0-8.0); NEUT % 63.2 % (16.0-70.0); PLATELET COUNT 175 TH/MM3 (150-450); RED BLOOD COUNT 4.59 MIL/MM3 (4.50-5.90); RED CELL DISTRIBUTION WIDTH 13.6 % (11.6-17.2)
--- NOTE | 2017-08-22 05:56 | PD ---
HPI Chief Complaint: left face abscess Time Seen by Provider: 05:48 Travel History International Travel<30 days: No Contact w/Intl Traveler<30days: No History of Present Illness HPI Patient's 37 years old and arrives complaining of left face pain and swelling. He was seen here earlier in the day and was diagnosed with dental abscess and prescribed Augmentin. He reports taking the first dose however no interval improvement in fact worsening thus leading to his return. He denies fever. Notes the pain is constant. He states that severe and that his routine of 180 mg of methadone daily has not helped. PFSH Past Medical History Hx Anticoagulant Therapy: No Blood Disorders: No Anxiety: Yes Depression: Yes Heart Rhythm Problems: Yes ("LOW HEART RATE" PER PT ) Cancer: No Cardiovascular Problems: No High Cholesterol: No Chemotherapy: No Chest Pain: Yes Congestive Heart Failure: No Cerebrovascular Accident: Yes Diabetes: No Diminished Hearing: No Endocrine: No Gastrointestinal Disorders: Yes (3-4 DAYS PT HAS BM) Genitourinary: No Immune Disorder: No Implanted Vascular Access Dvce: Yes Musculoskeletal: No Neurologic: Yes (stroke LEFT SIDED DEFICITS) Psychiatric: Yes Reproductive: No Respiratory: No Integumentary: Yes (mrsa ) Radiation Therapy: No Thyroid Disease: No Past Surgical History Body Medical Devices: PLATE AND SCREWS IN HEAD Neurologic Surgery: Yes (BRAIN SURGERY FOR ABSCESS FROM IVD USE) Other Surgery: Yes (BRAIN SURG,LEFT HAND, RIGH WRIST FX) Social History Alcohol Use: No (pt denies) Tobacco Use: Yes (1PPD) Substance Use: Yes (METHADONE DAILY) Allergies-Medications (Allergen,Severity, Reaction): Coded Allergies: Iodinated Contrast- Oral and IV Dye (Unverified Allergy, Severe, Rash, ) diatrizoate meglumine (Unverified Allergy, Unknown, HIVES, 08/21/17) gadobenic acid (Unverified Allergy, Unknown, HIVES, 08/21/17) gadodiamide (Unverified Allergy, Unknown, HIVES, 08/21/17) gadoteridol (Unverified Allergy, Unknown, HIVES, 08/21/17) iodixanol (Unverified Allergy, Unknown, HIVES, 08/21/17) iohexol (Unverified Allergy, Unknown, HIVES, 08/21/17) Reported Meds & Prescriptions Reported Meds & Active Scripts Active Augmentin (Amoxicillin-Clavulanate) 875-125 Mg Tab 1 Tab PO BID Keflex (Cephalexin) 500 Mg Cap 500 Mg PO Q6H 10 Days Bactrim DS (Sulfamethoxazole-Trimethoprim) 800-160 Mg Tab 1 Tab PO BID Reported Methadone Liq (Methadone HCl) 2 Mg/Ml Liqd 110 Mg PO DAILY Review of Systems Except as stated in HPI: all other systems reviewed are Neg General / Constitutional: No: Fever Physical Exam Narrative GENERAL: 37-year-old male well-nourished well-developed pleasant SKIN: Focused skin assessment warm/dry. HEAD: Atraumatic. Normocephalic. EYES: Pupils equal and round. No scleral icterus. No injection or drainage. ENT: No nasal bleeding or discharge. Mucous membranes pink and moist. Prominent swelling in the left maxillary face lateral left face. The ear is spared on the left side. NECK: Trachea midline. No JVD. CARDIOVASCULAR: Regular rate and rhythm. No murmur appreciated. RESPIRATORY: No accessory muscle use. Clear to auscultation. Breath sounds equal bilaterally. GASTROINTESTINAL: Abdomen soft, non-tender, nondistended. Hepatic and splenic margins not palpable. MUSCULOSKELETAL: No obvious deformities. No clubbing. No cyanosis. No edema. NEUROLOGICAL: Awake and alert. No obvious cranial nerve deficits. Motor grossly within normal limits. Normal speech. PSYCHIATRIC: Appropriate mood and affect; insight and judgment normal. Data Data Orders Orders Drug Screen, Random Urine (08/22/17 04:08) Basic Metabolic Panel (Bmp) (08/22/17 04:08) Complete Blood Count With Diff (08/22/17 04:08) Clindamycin Inj (Cleocin Inj) (08/22/17 05:15) Sodium Chlor 0.9% 1000 Ml Inj (Ns 1000 M (08/22/17 05:15) Oxycodone-Acetamin 5-325 Mg (Percocet (08/22/17 05:15) Labs Laboratory Tests Test 08/22/17 04:08 White Blood Count 9.0 TH/MM3 Red Blood Count 4.59 MIL/MM3 Hemoglobin 13.5 GM/DL Hematocrit 40.4 % Mean Corpuscular Volume 88.0 FL Mean Corpuscular Hemoglobin 29.5 PG Mean Corpuscular Hemoglobin Concent 33.5 % Red Cell Distribution Width 13.6 % Platelet Count 175 TH/MM3 Mean Platelet Volume 9.7 FL Neutrophils (%) (Auto) 63.2 % Lymphocytes (%) (Auto) 20.7 % Monocytes (%) (Auto) 11.9 % Eosinophils (%) (Auto) 3.8 % Basophils (%) (Auto) 0.4 % Neutrophils # (Auto) 5.7 TH/MM3 Lymphocytes # (Auto) 1.9 TH/MM3 Monocytes # (Auto) 1.1 TH/MM3 Eosinophils # (Auto) 0.3 TH/MM3 Basophils # (Auto) 0.0 TH/MM3 CBC Comment DIFF FINAL Differential Comment Blood Urea Nitrogen 11 MG/DL Creatinine 1.05 MG/DL Random Glucose 93 MG/DL Calcium Level 8.4 MG/DL Sodium Level 135 MEQ/L Potassium Level 4.0 MEQ/L Chloride Level 103 MEQ/L Carbon Dioxide Level 26.4 MEQ/L Anion Gap 6 MEQ/L Estimat Glomerular Filtration Rate 79 ML/MIN Urine Opiates Screen NEG Urine Barbiturates Screen NEG Urine Amphetamines Screen NEG Urine Benzodiazepines Screen NEG Urine Cocaine Screen NEG Urine Cannabinoids Screen NEG MDM Medical Decision Making Medical Screen Exam Complete: Yes Emergency Medical Condition: Yes Medical Record Reviewed: Yes Differential Diagnosis Abscess cellulitis and dental carry Narrative Course Blood work and clindamycin IV ordered. About 2 hours after the patient arrived she insisted on leaving AGAINST MEDICAL ADVICE expressing frustration with the delay and IV antibiotics administration. Patient demonstrates capacity for independent decision making As he is clinically sober. Understands that by leaving he may place himself at risk for serious complications including intracranial abscess, sepsis, septic shock, loss of dentition, worsening infection disability even potentially . Patient has verbalized the risks and leaving and that by leaving he is most likely going to delay his ability to receive antibiotics even more. Unfortunately the patient nonetheless elected to leave however since he can return any time. Pt has an Augmentin script filled and will hopefully comply with antibiotics. Diagnosis Primary Impression: Left against medical advice Disposition: 07 AGAINST MEDICAL ADVICE Condition: Stable Kai Johnson MD Aug 22, 2017 05:55
== END 2017-08-22 06:12 | disposition left against medical advice (07) ==
LOC: NED 03:30
DX: K04.7 Periapical abscess without sinus (principal); F41.9 Anxiety disorder, unspecified; F32.9 Major depressive disorder, single episode, unspecified; I69.954 Hemiplegia and hemiparesis following unspecified cerebrovascular disease affecting left non-dominant side; F17.200 Nicotine dependence, unspecified, uncomplicated; Z79.899 Other long term (current) drug therapy; Z88.8 Allergy status to other drugs, medicaments and biological substances
CPT/HCPCS: 80048; 80307; 85025; 96360; 99284; J7030